=== PATIENT | female | born 1995 | race African-American/Black ===

== ENCOUNTER 2017-06-10 16:15 | Emergency (ER) | payer OTHER ==
[~2017-06-10] VITALS: Ht 162.6 cm; Wt 73.0 kg
[~2017-06-10 16:15] MED LIST: BIRTH CONTROL
[2017-06-10] MEDS ORDERED: IBUPROFEN 600MG TABLET PO ONE (18:15)
[2017-06-10 18:29] VITALS: BP 123/85
== END 2017-06-10 18:44 | disposition home or self-care (01) ==
LOC: ER 16:33
DX: S16.1XXA Strain of muscle, fascia and tendon at neck level, initial encounter (principal); M54.5 Low back pain; J45.909 Unspecified asthma, uncomplicated; F41.9 Anxiety disorder, unspecified; Z88.8 Allergy status to other drugs, medicaments and biological substances; V89.2XXA Person injured in unspecified motor-vehicle accident, traffic, initial encounter; Y93.89 Activity, other specified; Y92.410 Unspecified street and highway as the place of occurrence of the external cause; Y99.8 Other external cause status
CPT/HCPCS: 99283

== ENCOUNTER 2017-10-04 07:27 | Emergency (ER) | payer OTHER ==
[~2017-10-04] VITALS: Ht 165.1 cm; Wt 79.0 kg
[2017-10-04 10:30] VITALS: BP 134/90
== END 2017-10-04 11:00 | disposition home or self-care (01) ==
LOC: ER 07:49
DX: J32.9 Chronic sinusitis, unspecified (principal); J45.909 Unspecified asthma, uncomplicated
CPT/HCPCS: 99283

== ENCOUNTER 2017-12-24 09:11 | Emergency (ER) | payer OTHER ==
[~2017-12-24] VITALS: Ht 172.7 cm; Wt 75.0 kg
[2017-12-24 10:26] LABS: BASOPHILS % 0.6 % (0.0-2.0); EOSINOPHILS % 3.3 % (0.0-5.0); HEMATOCRIT. 38.5 % (36.0-48.0); HEMOGLOBIN. 12.8 g/dL (12.0-16.0); LYMPHOCYTES % 29.7 % (20.0-50.0); MEAN CORPUSCULAR VOLUME 84.1 fL (81.0-99.0); MEAN PLATELET VOLUME 9.3 fl (7.4-10.4); MONOCYTES % 5.3 % (2.0-8.0); NEUTROPHILS % 61.1 % (40.0-76.0); PLATELET 220 x1000/uL (130-400); RED BLOOD CELL COUNT 4.58 mill/uL (4.2-5.4); RED CELL DISTRIBUTION WIDTH 13.1 % (11.6-14.6)
[2017-12-24 10:32] LABS: CHLORIDE 108 mEq/L (98-107)
[2017-12-24 10:56] LABS: B-HCG QUANTITATIVE 21839 mIU/mL (<3)
[2017-12-24 11:24] LABS: CLARITY URINE CLEAR (CLEAR); COLOR URINE YELLOW (YELLOW); KETONES URINE NEGATIVE (NEGATIVE); LEUKOCYTE ESTERASE URINE NEGATIVE (NEGATIVE); NITRITE URINE NEGATIVE (NEGATIVE); OCCULT BLOOD URINE 2+ (NEGATIVE); PROTEIN URINE NEGATIVE (NEGATIVE); SPECIFIC GRAVITY URINE 1.023 (1.005-1.030)
[2017-12-24 12:05] LABS: *AMPHETAMINES SCREEN URINE NEGATIVE (NEGATIVE); *BARBITURATES SCREEN URINE NEGATIVE (NEGATIVE); *BENZODIAZEPINES SCREEN URINE NEGATIVE (NEGATIVE); *COCAINE SCREEN URINE NEGATIVE (NEGATIVE); METHADONE URINE SCREEN NEGATIVE (NEGATIVE); OPIATES URINE SCREEN NEGATIVE (NEGATIVE); PHENCYCLIDINE URINE SCREEN NEGATIVE (NEGATIVE)
[2017-12-24 12:07] LABS: CANNABINOID URINE SCREEN PRESUMTIVE POSITIVE (NEGATIVE)
[2017-12-24 14:14] VITALS: BP 114/62
== END 2017-12-24 14:41 | disposition home or self-care (01) ==
LOC: ER 09:18
DX: O20.0 Threatened abortion (principal); O99.519 Diseases of the respiratory system complicating pregnancy, unspecified trimester; J45.909 Unspecified asthma, uncomplicated; O99.320 Drug use complicating pregnancy, unspecified trimester; F12.10 Cannabis abuse, uncomplicated; Z3A.00 Weeks of gestation of pregnancy not specified
CPT/HCPCS: 36415; 76801; 80048; 80305; 81001; 81025; 84702; 85025; 86850; 86900; 99285

== ENCOUNTER 2018-01-30 00:41 | Emergency (ER) | payer OTHER ==
[~2018-01-30] VITALS: Ht 167.6 cm; Wt 80.0 kg
[2018-01-30] MEDS ORDERED: ACETAMINOPHEN WITH CODEINE 300/30MG TABLET PO ONE (01:15)
[2018-01-30 01:25] LABS: BASOPHILS % 0.5 % (0.0-2.0); EOSINOPHILS % 1.6 % (0.0-5.0); HEMATOCRIT. 38.6 % (36.0-48.0); HEMOGLOBIN. 12.9 g/dL (12.0-16.0); LYMPHOCYTES % 15.9 % (20.0-50.0); MEAN CORPUSCULAR HEMOGLOBIN 28.7 pg (28.0-32.0); MEAN CORPUSCULAR VOLUME 85.5 fL (81.0-99.0); MEAN PLATELET VOLUME 9.3 fl (7.4-10.4); MONOCYTES % 4.1 % (2.0-8.0); NEUTROPHILS % 77.9 % (40.0-76.0); PLATELET 242 x1000/uL (130-400); RED BLOOD CELL COUNT 4.51 mill/uL (4.2-5.4); RED CELL DISTRIBUTION WIDTH 13.6 % (11.6-14.6)
[2018-01-30 01:28] LABS: CHLORIDE 109 mEq/L (98-107)
[2018-01-30 01:39] LABS: B-HCG QUANTITATIVE 585 mIU/mL (<3)
[2018-01-30 03:34] VITALS: BP 120/68
== END 2018-01-30 03:36 | disposition home or self-care (01) ==
LOC: ER 00:42
DX: O03.4 Incomplete spontaneous abortion without complication (principal); O99.519 Diseases of the respiratory system complicating pregnancy, unspecified trimester; J45.909 Unspecified asthma, uncomplicated; Z3A.00 Weeks of gestation of pregnancy not specified
CPT/HCPCS: 36415; 76801; 80053; 84702; 85025; 86850; 86900; 99285

== ENCOUNTER 2019-10-26 17:24 | Emergency (ER) | payer BC, OTHER ==
[~2019-10-26] VITALS: Ht 167.6 cm; Wt 80.0 kg
[2019-10-26] MEDS ORDERED: ALBUTEROL (0.083%) 2.5MG/3ML NEB HHN STA ×2 (18:29→20:18)
[2019-10-26] MEDS ORDERED: IPRATROPIUM BROMIDE (0.02%) 0.5MG/2.5ML NEB HHN STA ×2 (18:29→20:18)
[2019-10-26] MEDS ORDERED: PREDNISONE 20MG TABLET PO STA (18:29)
[2019-10-26 20:45] VITALS: BP 141/71
== END 2019-10-26 21:03 | disposition home or self-care (01) ==
LOC: ER 17:24
DX: J45.901 Unspecified asthma with (acute) exacerbation (principal)
CPT/HCPCS: 81025; 99283; J7512; J7611

== ENCOUNTER 2021-10-26 09:50 | Emergency (ER) | payer BC, MEDICAID ==
[~2021-10-26] VITALS: Ht 170.2 cm; Wt 100.0 kg
[2021-10-26] MEDS ORDERED: ACETAMINOPHEN 325MG TABLET PO ONE (10:30)
[2021-10-26 12:46] VITALS: BP 130/88
== END 2021-10-26 12:47 | disposition home or self-care (01) ==
LOC: ER 10:01
DX: S09.8XXA Other specified injuries of head, initial encounter (principal); R03.0 Elevated blood-pressure reading, without diagnosis of hypertension; Z32.01 Encounter for pregnancy test, result positive; Y04.2XXA Assault by strike against or bumped into by another person, initial encounter; Y93.89 Activity, other specified; Y92.018 Other place in single-family (private) house as the place of occurrence of the external cause
CPT/HCPCS: 70486; 81025; 99284

== ENCOUNTER 2024-05-01 23:54 | Emergency (ER) | payer MEDICAID ==
[~2024-05-01] VITALS: Ht 167.6 cm; Wt 109.0 kg
[2024-05-02] MEDS ORDERED: DEXAMETHASONE 4MG TABLET PO ONE (00:30)
[2024-05-02 00:35] VITALS: TEMP 98.1
[2024-05-02 00:56] VITALS: PULSE 102; RESP 17; O2SAT 97
[2024-05-02] MEDS: ALBUTEROL (0.083%) 2.5MG/3ML NEB HHN STA (00:56)
[2024-05-02] MEDS: IPRATROPIUM BROMIDE (0.02%) 0.5MG/2.5ML NEB HHN STA (00:56)
[2024-05-02 01:01] LABS: BASOPHILS % 0.3 % (0.0-2.0); EOSINOPHILS % 1.4 % (0.0-5.0); HEMATOCRIT. 36.3 % (36.0-48.0); HEMOGLOBIN. 11.8 g/dL (12.0-16.0); LYMPHOCYTES % 27.7 % (20.0-50.0); MEAN CORPUSCULAR HGB CONC 32.6 g/dL (31.0-37.0); MEAN PLATELET VOLUME 10.4 fl (7.4-10.4); MONOCYTES % 6.1 % (2.0-8.0); NEUTROPHILS % 64.5 % (40.0-76.0); PLATELET 237 x1000/uL (130-400); RED BLOOD CELL COUNT 4.37 mill/uL (4.2-5.4); RED CELL DISTRIBUTION WIDTH 14.6 % (11.6-14.6); WHITE BLOOD COUNT 11.9 x1000/uL (4.5-11.0)
[2024-05-02] MEDS: DEXAMETHASONE 2MG TABLET PO NR (01:07)
[2024-05-02 01:09] LABS: CHLORIDE 108 mEq/L (98-107); POTASSIUM 3.5 mEq/L (3.5-5.1); SODIUM 139 mEq/L (136-145)
[2024-05-02 01:10] LABS: CALCIUM 9.7 mg/dL (8.7-10.4); CARBON DIOXIDE 21 mEq/L (21-32)
[2024-05-02] MEDS: HYDRALAZINE 20MG/ML VIAL IV ONE (01:11)
[2024-05-02 01:15] LABS: CREATININE 0.8 mg/dL (0.6-1.0); GLUCOSE 101 mg/dL (70-105); TROPONIN I HIGH SENSITIVITY 8 ng/L (3.0-34)
[2024-05-02 01:16] LABS: UREA NITROGEN BLOOD 14 mg/dL (9-23)
[2024-05-02 01:17] LABS: ALANINE AMINOTRANSFERASE 33 IU/L (10-49); ALBUMIN 3.8 g/dL (3.2-4.8); ASPARTATE AMINOTRANSFERASE 27 IU/L (<34)
[2024-05-02 01:18] LABS: BILIRUBIN TOTAL 0.3 mg/dL (0.1-1.0)
[2024-05-02 01:32] LABS: BILIRUBIN DIRECT < 0.1 mg/dL (<=3.0)
[2024-05-02 02:16] LABS: D-DIMER 1.42 mg/L FEU (<0.50); INR 0.9; PROTHROMBIN TIME 9.6 sec (9.6-11.0)
[2024-05-02] MEDS: LABETALOL 5MG/ML 4ML INJ IV NR (02:20)
[2024-05-02] MEDS: MAGNESIUM 4 G PREMIX 100 ML IV NR (02:43)
[2024-05-02 02:50] LABS: TROPONIN I HIGH SENSITIVITY 6 ng/L (3.0-34)
[2024-05-02 02:53] LABS: CLARITY URINE CLEAR (CLEAR); COLOR URINE YELLOW (YELLOW); GLUCOSE URINE NEGATIVE (NEGATIVE); KETONES URINE TRACE (NEGATIVE); LEUKOCYTE ESTERASE URINE NEGATIVE (NEGATIVE); NITRITE URINE NEGATIVE (NEGATIVE); OCCULT BLOOD URINE 1+ (NEGATIVE); PH URINE 6.5 (4.5-8.0); PROTEIN URINE 4+ (NEGATIVE); SPECIFIC GRAVITY URINE 1.046 (1.005-1.030); UROBILINOGEN URINE 0.2 E.U./dL (0.2-1.0)
[2024-05-02 05:00] VITALS: BP 143/9; PULSE 88; RESP 14
[2024-05-02] MEDS ORDERED: IOHEXOL-350 100 ML BOTTLE ONE (05:42)
[2024-05-02 08:44] LABS: BACTERIA URINE 1+; SQUAMOUS EPITHELIAL CELL URINE 2+ /lpf (RARE/1+); YEAST URINE NONE SEEN
[2024-05-02 08:46] LABS: COARSE GRANULAR CASTS URINE 0-5 /lpf; HYALINE CASTS URINE 0-5 /lpf; WHITE BLOOD CELL CASTS URINE 0-5 /lpf
== END 2024-05-02 05:05 | disposition short-term general hospital (02) ==
LOC: ER 23:54
DX: O26.893 Other specified pregnancy related conditions, third trimester (principal); O99.513 Diseases of the respiratory system complicating pregnancy, third trimester; I10 Essential (primary) hypertension; J45.909 Unspecified asthma, uncomplicated; Z3A.35 35 weeks gestation of pregnancy
CPT/HCPCS: 99291; 80076; 80048; 81003; 83690; 83735; 85025; 85379; 85610; 84484; 36415; 71275; 76805; 96365; 96375; Q9967; J8540; J0360; J3490; J3475; Z7610